=== PATIENT | male | born 1950 | race African-American/Black ===

== ENCOUNTER 2017-06-10 19:30 | Outpatient (CLI) | payer MEDICARE | END 2017-06-10 19:31 | disposition home or self-care (01) | LOC: SLEEPLAB 19:30 | PROVIDERS: ATTEND Family Medicine | DX: G47.33 Obstructive sleep apnea (adult) (pediatric) (principal); I63.9 Cerebral infarction, unspecified; R53.83 Other fatigue; R06.83 Snoring; I10 Essential (primary) hypertension | CPT/HCPCS: 95811 ==

== ENCOUNTER 2020-05-02 09:41 | Outpatient (CLI) | payer MEDICARE ==
--- NOTE | 2020-05-02 12:08 | ULT ---
BILATERAL RENAL ULTRASOUND: Date: 05/02/2020 HISTORY: Chronic renal disease. FINDINGS: The right kidney measures 10.4 cm in length and the left kidney measures 10.8 cm in length. No focal mass or hydronephrosis seen on either side. Cortical echogenicity and thickness is normal. No shadowi ng calculi are seen. Urinary bladder is grossly unremarkable. There is an enlarged prostate measuring 6.4 x 4.3 x 4.5 cm. IMPRESSION: Prostatic enlargement, otherwise unremarkable exam. POS: OFF
== END 2020-05-02 09:42 | disposition home or self-care (01) ==
LOC: BICULT 09:41
PROVIDERS: ATTEND Internal Medicine Nephrology
DX: N18.30 Chronic kidney disease, stage 3 unspecified (principal); N40.0 Benign prostatic hyperplasia without lower urinary tract symptoms
CPT/HCPCS: 76770